=== PATIENT | male | born 1995 | race Caucasian/White ===

== ENCOUNTER 2020-07-13 13:42 | Emergency (ER) | payer SELFPAY ==
[~2020-07-13] VITALS: Ht 170.2 cm; Wt 71.2 kg
[2020-07-13 13:44] VITALS: BP 122/76
[2020-07-13] MEDS ORDERED: ACETAMINOPHEN 325 MG TABLET ONE (14:27)
[2020-07-13] MEDS ORDERED: ACETAMINOPHEN 325 MG TABLET PO ONE (14:30)
--- NOTE | 2020-07-13 15:17 | NUR ---
Patient given written and verbal discharge instructions. Patient verbalizes understanding of instructions. Patient is ambulatory with steady gait. Refuses offer of skilled nursing placement. Patient given list of available shelters in surrounding area.
== END 2020-07-13 15:19 | disposition home or self-care (01) ==
LOC: ER 13:45
DX: S40.022A Contusion of left upper arm, initial encounter (principal); S40.021A Contusion of right upper arm, initial encounter; M79.18 Myalgia, other site; Z59.0 Homelessness; Y04.0XXA Assault by unarmed brawl or fight, initial encounter; Y93.89 Activity, other specified; Y92.89 Other specified places as the place of occurrence of the external cause; Y99.8 Other external cause status